=== PATIENT | female | born 1995 | race Caucasian/White ===

== ENCOUNTER 2020-06-13 01:57 | Emergency (ER) | payer OTHER ==
[2020-06-13 02:13] VITALS: TEMP 98.9; BMI 39.1
[2020-06-13] MEDS ORDERED: predniSONE 20 MG TABLET (UD) PO ONE (02:34)
[2020-06-13] MEDS ORDERED: valACYclovir HCL 500 MG TABLET (FP) PO ONE (02:36)
[2020-06-13] MEDS ORDERED: ARTIFICIAL TEARS (POLYVINYL ALCOHOL) OPTH DROPS OU PRN (02:37)
[2020-06-13] MEDS ORDERED: valACYclovir HCL 500 MG TABLET (FP) ONE (02:49)
[2020-06-13 03:32] VITALS: BP 129/82; PULSE 88
== END 2020-06-13 03:00 | disposition home or self-care (01) ==
LOC: JER 01:57
DX: O99.353 Diseases of the nervous system complicating pregnancy, third trimester (principal); Z3A.33 33 weeks gestation of pregnancy
CPT/HCPCS: 99283-25

== ENCOUNTER 2020-07-24 15:40 | Inpatient (IN) | payer OTHER ==
[2020-07-24] MEDS ORDERED: ELECTROLYTE-148 SOLN 500 ML IV SCH ×2 (18:00→19:00)
[2020-07-24] MEDS ORDERED: AMPICILLIN - 2 GM in SODIUM CHLORIDE 100 ML IVPB ONE (19:00)
[2020-07-24] MEDS ORDERED: DEXTROSE 5%-LACTATED RINGERS 1,000 ML IV SCH ×2 (19:00)
[2020-07-24] MEDS ORDERED: PROMETHAZINE HCL 25 MG/1 ML VIAL IVPB ONE (19:00)
[2020-07-24] MEDS ORDERED: BUTORPHANOL TARTRATE 1 MG/ML VIAL IVPB ONE (19:00)
[2020-07-24] MEDS ORDERED: AMPICILLIN SODIUM 2 GM VIAL ONE (19:38)
[2020-07-24 20:11] LABS: BASO % 0.4 % (0-2.0); EOS % 0.4 % (0-4.5); HEMATOCRIT 40.7 % (32.4-45.2); HEMOGLOBIN 13.5 GM/dL (10.7-15.3); LYMPH % 16.4 % (8-40); MCHC 33.2 g/dl (32.0-36.0); MEAN CELL VOLUME 93.2 fl (80-96); MEAN PLT VOLUME 8.8 fl (7.5-11.1); NEUT % 78.8 % (42.8-82.8); PLATELET COUNT 274 K/MM3 (134-434); RBC 4.37 M/mm3 (3.60-5.2); RDW 14.3 % (11.6-15.6); WHITE BLOOD COUNT 12.5 K/mm3 (4.0-10.0)
[2020-07-24 20:18] LABS: INR 0.9 (0.83-1.09); PROTHROMBIN TIME (PATIENT) 10.9 SEC (9.7-13.0)
[2020-07-24 20:21] LABS: ACTIVATED PTT 22.7 SECONDS (25.2-36.5)
[2020-07-24 20:27] LABS: BLOOD UREA NITROGEN 6.8 mg/dL (7-18); CALCIUM 9.3 mg/dL (8.5-10.1)
[2020-07-24 20:31] LABS: CREATININE 0.4 mg/dL (0.55-1.3)
[2020-07-24 20:52] VITALS: BMI 39.1
[2020-07-24 20:55] LABS: SYPHILIS W/ RPR CONF NON-REACTIVE (NONREACTIVE)
[2020-07-24] MEDS ORDERED: ELECTROLYTE-148 SOLN 1,000 ML IV SCH (21:00)
[2020-07-24] MEDS ORDERED: OXYTOCIN 30 UNITS in 0.9% NS 30 UNIT/500 ML INFUS.BAG IVPB ONE (21:47)
[2020-07-24] MEDS ORDERED: OXYTOCIN 30 UNITS in 0.9% NS 30 UNIT/500 ML INFUS.BAG IVPB SCH (23:00)
[2020-07-24] MEDS ORDERED: AMPICILLIN SODIUM 1 GM VIAL ONE (23:29)
[2020-07-24] MEDS: AMPICILLIN - 1 GM in SODIUM CHLORIDE 100 ML IVPB SCH (23:30)
[2020-07-25] MEDS ORDERED: PROMETHAZINE HCL 25 MG/1 ML VIAL ONE (00:09)
[2020-07-25] MEDS ORDERED: BUTORPHANOL TARTRATE 1 MG/ML VIAL ONE (00:09)
[2020-07-25] MEDS ORDERED: BUTORPHANOL TARTRATE 1 MG/ML VIAL IVPB ONE (00:30)
[2020-07-25] MEDS ORDERED: PCA PUMP NR ONE (01:38)
[2020-07-25] MEDS ORDERED: FENTANYL/BUPIVACAINE/NS/PF - PCEA - 50 ML DISP.SYRIN EP ONE (01:39)
[2020-07-25] MEDS ORDERED: BUPIVACAINE HCL/PF 0.25% (2.5MG/ML) 10 ML VIAL ONE (01:45)
[2020-07-25] MEDS ORDERED: NALOXONE HCL 0.4 MG/ML VIAL IVPUSH PRN (02:14)
[2020-07-25] MEDS ORDERED: FENTANYL/BUPIVACAINE/NS/PF - PCEA - 50 ML DISP.SYRIN EP SCH (02:15)
[2020-07-25] MEDS ORDERED: AMPICILLIN SODIUM 1 GM VIAL ONE (03:16)
[2020-07-25] MEDS: AMPICILLIN - 1 GM in SODIUM CHLORIDE 100 ML IVPB SCH (03:30)
[2020-07-25] MEDS ORDERED: GENTAMICIN SO4 80 MG/2 ML VIAL ONE (03:36)
[2020-07-25] MEDS ORDERED: GENTAMICIN INJECTION 160 MG in SODIUM CHLORIDE 100 ML IVPB ONE (03:52)
[2020-07-25] MEDS ORDERED: OXYTOCIN 20 UNITS in 0.9% NS 20 UNIT/1,000 ML INFUS.BAG IV ONE ×2 (06:13→08:12)
[2020-07-25] MEDS ORDERED: LIDOCAINE HCL 1% PRESERVATIVE FREE - 30ML VIAL ONE (06:14)
[2020-07-25] MEDS ORDERED: BENZOCAINE 20% 57 GM BOTTLE TP PRN (07:39)
[2020-07-25] MEDS ORDERED: ACETAMINOPHEN 325 MG TABLET (FP) PO PRN (07:39)
[2020-07-25] MEDS ORDERED: BENZOCAINE 28 GM HEMORRHOIDAL OINTMENT TP PRN (07:39)
[2020-07-25] MEDS ORDERED: BISACODYL 10 MG SUPP.RECT RC PRN (07:39)
[2020-07-25] MEDS ORDERED: METHYLERGONOVINE MALEATE 0.2 MG/1 ML AMP IM PRN (07:39)
[2020-07-25] MEDS ORDERED: IBUPROFEN 600 MG TABLET (FP) PO PRN (07:39)
[2020-07-25] MEDS ORDERED: WITCH HAZEL 50% (TUCKS) 40 PAD/JAR PAD TP PRN (07:39)
[2020-07-25] MEDS ORDERED: AMPICILLIN - 2 GM in SODIUM CHLORIDE 100 ML IVPB SCH (09:00)
[2020-07-25] MEDS ORDERED: GENTAMICIN 80 MG PREMIXED IVPB 80 MG/100 ML BAG IVPB SCH (10:00)
[2020-07-25] MEDS: GENTAMICIN 80 MG PREMIXED IVPB 80 MG/100 ML BAG IVPB SCH ×2 (12:18→19:48)
[2020-07-25] MEDS ORDERED: AMPICILLIN SODIUM 2 GM VIAL ONE ×2 (13:41→17:39)
[2020-07-25] MEDS ORDERED: SODIUM CHLORIDE 100 ML IVPB ONE ×2 (13:41→17:39)
[2020-07-25] MEDS: AMPICILLIN - 2 GM in SODIUM CHLORIDE 100 ML IVPB SCH ×2 (13:44→17:46)
[2020-07-26] MEDS ORDERED: SODIUM CHLORIDE 100 ML IVPB ONE ×2 (00:07→05:29)
[2020-07-26] MEDS ORDERED: AMPICILLIN SODIUM 2 GM VIAL ONE ×2 (00:07→05:29)
[2020-07-26] MEDS: AMPICILLIN - 2 GM in SODIUM CHLORIDE 100 ML IVPB SCH ×2 (00:11→05:32)
[2020-07-26 00:30] LABS: HIV INTERPRETATION NEGATIVE (NEGATIVE)
[2020-07-26 08:18] LABS: BASO % 0.3 % (0-2.0); EOS % 0.5 % (0-4.5); HEMATOCRIT 38.2 % (32.4-45.2); HEMOGLOBIN 12.3 GM/dL (10.7-15.3); LYMPH % 17.8 % (8-40); MCH 30.4 pg (25.7-33.7); MCHC 32.1 g/dl (32.0-36.0); MEAN CELL VOLUME 94.6 fl (80-96); MONO % 5.5 % (3.8-10.2); NEUT % 75.9 % (42.8-82.8); PLATELET COUNT 236 K/MM3 (134-434); RBC 4.04 M/mm3 (3.60-5.2); RDW 14.6 % (11.6-15.6); WHITE BLOOD COUNT 16.7 K/mm3 (4.0-10.0)
[2020-07-26 16:20] LABS: BASO % 0.4 % (0-2.0); EOS % 0.9 % (0-4.5); HEMATOCRIT 37.8 % (32.4-45.2); HEMOGLOBIN 12.5 GM/dL (10.7-15.3); LYMPH % 20.4 % (8-40); MCHC 33.2 g/dl (32.0-36.0); MEAN CELL VOLUME 93.5 fl (80-96); MEAN PLT VOLUME 8.5 fl (7.5-11.1); MONO % 5.7 % (3.8-10.2); NEUT % 72.6 % (42.8-82.8); PLATELET COUNT 247 10^3/uL (134-434); RBC 4.04 M/mm3 (3.60-5.2); RDW 14.5 % (11.6-15.6); WHITE BLOOD COUNT 14.1 K/mm3 (4.0-10.0)
[2020-07-26 16:25] LABS: INR 0.86 (0.83-1.09); PROTHROMBIN TIME (PATIENT) 10.4 SEC (9.7-13.0)
[2020-07-26 16:27] LABS: ACTIVATED PTT 23.9 SECONDS (25.2-36.5)
[2020-07-26 20:09] VITALS: PULSE 75
[2020-07-26] MEDS ORDERED: SENNOSIDES/DOCUSATE COMBO (SENNA PLUS) TABLET (UD) PO PRN (22:00)
[2020-07-27 08:37] VITALS: BP 122/78; TEMP 98.2
== END 2020-07-27 13:00 | disposition home or self-care (01) | DRG 560 ==
LOC: JDEL 15:40 → JLDR 18:42 → J3W 07-25 09:15
PROVIDERS: ADMIT Specialist; ATTEND Specialist
PROC: 10907ZC Drainage of Amniotic Fluid, Therapeutic from Products of Conception, Via Natural or Artificial Opening (ICD-10-PCS; principal; 2020-07-25)
PROC: 10E0XZZ Delivery of Products of Conception, External Approach (ICD-10-PCS; 2020-07-25)
PROC: 0W8NXZZ Division of Female Perineum, External Approach (ICD-10-PCS; 2020-07-25)
DX: O99.214 Obesity complicating childbirth (principal); E66.9 Obesity, unspecified; O99.350 Diseases of the nervous system complicating pregnancy, unspecified trimester; G51.0 Bell's palsy; Z37.0 Single live birth; Z3A.38 38 weeks gestation of pregnancy
CPT/HCPCS: 36415; 59409; 80048; 85025; 85610; 85730; 86780; 86850; 86900; 86901; 87389; C9803; U0003; U0005

== ENCOUNTER 2022-01-13 21:30 | Inpatient (IN) | payer OTHER ==
[2022-01-13] MEDS ORDERED: AMPICILLIN - 2 GM in SODIUM CHLORIDE 100 ML IVPB ONE (22:07)
[2022-01-13] MEDS ORDERED: ELECTROLYTE-148 SOLN 1,000 ML IV SCH (22:15)
[2022-01-13] MEDS ORDERED: OXYTOCIN 30 UNITS in 0.9% NS 30 UNIT/500 ML INFUS.BAG IVPB SCH (22:15)
[2022-01-13] MEDS ORDERED: AMPICILLIN SODIUM 2 GM VIAL ONE (22:42)
[2022-01-13] MEDS ORDERED: OXYTOCIN 30 UNITS in 0.9% NS 30 UNIT/500 ML INFUS.BAG IVPB ONE (22:42)
[2022-01-13] MEDS ORDERED: SODIUM CHLORIDE 100 ML IVPB ONE (22:42)
[2022-01-14 00:36] VITALS: BMI 38.4
[2022-01-14] MEDS ORDERED: PROMETHAZINE HCL 25 MG/1 ML VIAL ONE (01:59)
[2022-01-14] MEDS ORDERED: BUTORPHANOL TARTRATE 1 MG/ML VIAL ONE ×2 (01:59→02:01)
[2022-01-14] MEDS ORDERED: BUTORPHANOL TARTRATE 1 MG/ML VIAL IVPB SCH (02:00)
[2022-01-14] MEDS ORDERED: PROMETHAZINE HCL 25 MG/1 ML VIAL IVPB ONE (02:00)
[2022-01-14] MEDS ORDERED: LIDOCAINE HCL 1% PRESERVATIVE FREE - 30ML VIAL ONE (02:03)
[2022-01-14] MEDS ORDERED: OXYTOCIN 20 UNITS in 0.9% NS 20 UNIT/1,000 ML INFUS.BAG IV ONE (02:05)
[2022-01-14] MEDS ORDERED: AMPICILLIN - 1 GM in SODIUM CHLORIDE 100 ML IVPB SCH (02:15)
[2022-01-14] MEDS ORDERED: SODIUM CHLORIDE 100 ML IVPB ONE (02:45)
[2022-01-14] MEDS ORDERED: AMPICILLIN SODIUM 1 GM VIAL ONE (02:45)
[2022-01-14] MEDS ORDERED: BENZOCAINE 28 GM HEMORRHOIDAL OINTMENT TP PRN (03:47)
[2022-01-14] MEDS ORDERED: BISACODYL 10 MG SUPP.RECT RC PRN (03:47)
[2022-01-14] MEDS ORDERED: IBUPROFEN 600 MG TABLET (FP) PO PRN (03:47)
[2022-01-14] MEDS ORDERED: WITCH HAZEL 50% (TUCKS) 40 PAD/JAR PAD TP PRN (03:47)
[2022-01-14] MEDS ORDERED: BENZOCAINE 20% 57 GM BOTTLE TP PRN (03:47)
[2022-01-14] MEDS ORDERED: METHYLERGONOVINE MALEATE 0.2 MG/1 ML AMP IM PRN (03:47)
[2022-01-14] MEDS ORDERED: ACETAMINOPHEN 325 MG TABLET (FP) PO PRN (03:47)
[2022-01-14] MEDS ORDERED: oxyCODONE HCL 5 MG TABLET PO PRN (03:47)
[2022-01-14] MEDS ORDERED: OXYTOCIN 20 UNITS in 0.9% NS 20 UNIT/1,000 ML INFUS.BAG IV SCH (04:00)
[2022-01-15 10:41] LABS: BASO % 0.3 % (0-2.0); EOS % 0.8 % (0-4.5); HEMOGLOBIN 11.8 GM/dL (10.7-15.3); LYMPH % 25.5 % (8-40); MCH 30.1 pg (25.7-33.7); MCHC 32.9 g/dl (32.0-36.0); MEAN CELL VOLUME 91.4 fl (80-96); MEAN PLT VOLUME 9.2 fl (7.5-11.1); MONO % 5.1 % (3.8-10.2); NEUT % 68.3 % (42.8-82.8); PLATELET COUNT 250 10^3/uL (134-434); RBC 3.94 M/mm3 (3.60-5.2); RDW 13.7 % (11.6-15.6)
[2022-01-15 13:25] VITALS: BP 113/77; PULSE 95; RESP 17; TEMP 98.6
[2022-01-15] MEDS ORDERED: SENNOSIDES/DOCUSATE COMBO (SENNA PLUS) TABLET (UD) PO PRN (22:00)
== END 2022-01-15 14:00 | disposition home or self-care (01) | DRG 560 ==
LOC: JLDR 21:30 → J3W 01-14 05:13
PROVIDERS: ADMIT Specialist; ATTEND Specialist
PROC: 10E0XZZ Delivery of Products of Conception, External Approach (ICD-10-PCS; principal; 2022-01-14)
PROC: 0W8NXZZ Division of Female Perineum, External Approach (ICD-10-PCS; 2022-01-14)
DX: O99.824 Streptococcus B carrier state complicating childbirth (principal); O69.81X0 Labor and delivery complicated by cord around neck, without compression, not applicable or unspecified; Z3A.39 39 weeks gestation of pregnancy; Z37.0 Single live birth
CPT/HCPCS: 36415; 59025; 59409; 80048; 85025; 85610; 85730; 86780; 86850; 86900; 86901; C9803-CS; G0463-25; U0003; U0005

== ENCOUNTER 2023-07-11 14:25 | Inpatient (IN) | payer OTHER ==
[2023-07-11] MEDS ORDERED: AMPICILLIN SODIUM 2 GM VIAL ONE (14:53)
[2023-07-11] MEDS: AMPICILLIN - 2 GM in SODIUM CHLORIDE 100 ML IVPB ONE (15:30)
[2023-07-11] MEDS: ELECTROLYTE-148 SOLN 1,000 ML IV SCH (15:30)
[2023-07-11 15:40] LABS: BASO % 0.4 % (0-2.0); EOS % 2.4 % (0-4.5); HEMATOCRIT 39.4 % (32.4-45.2); HEMOGLOBIN 12.9 GM/dL (10.7-15.3); LYMPH % 21.2 % (8-40); MCH 29.2 pg (25.7-33.7); MCHC 32.6 g/dl (32.0-36.0); MEAN CELL VOLUME 89.4 fl (80-96); MEAN PLT VOLUME 8.9 fl (7.5-11.1); PLATELET COUNT 268 10^3/uL (134-434); RBC 4.41 M/mm3 (3.60-5.2); RDW 13.4 % (11.6-15.6); WHITE BLOOD COUNT 10.3 K/mm3 (4.0-10.0)
[2023-07-11 15:46] LABS: INR 0.86 (0.83-1.09); PROTHROMBIN TIME (PATIENT) 9.9 SEC (9.7-13.0)
[2023-07-11 15:48] LABS: ACTIVATED PTT 24.9 SECONDS (25.2-36.5)
[2023-07-11] MEDS ORDERED: OXYTOCIN 30 UNITS in 0.9% NS 30 UNIT/500 ML INFUS.BAG IVPB ONE (15:55)
[2023-07-11] MEDS: OXYTOCIN 30 UNITS in 0.9% NS 30 UNIT/500 ML INFUS.BAG IVPB SCH (16:00)
[2023-07-11 16:14] LABS: POTASSIUM 4.1 mmol/L (3.5-5.1)
[2023-07-11 16:15] VITALS: BMI 36.4
[2023-07-11 16:18] LABS: CALCIUM 8.9 mg/dL (8.5-10.1)
[2023-07-11 16:19] LABS: BLOOD UREA NITROGEN 9.1 mg/dL (7-18)
[2023-07-11 16:22] LABS: CREATININE 0.5 mg/dL (0.55-1.3)
[2023-07-11] MEDS ORDERED: OXYTOCIN 20 UNITS in 0.9% NS 20 UNIT/1,000 ML INFUS.BAG IV ONE (18:15)
[2023-07-11] MEDS ORDERED: AMPICILLIN SODIUM 1 GM VIAL ONE (18:31)
[2023-07-11] MEDS: AMPICILLIN - 1 GM in SODIUM CHLORIDE 100 ML IVPB SCH (18:35)
[2023-07-11] MEDS: OXYTOCIN 20 UNITS in 0.9% NS 20 UNIT/1,000 ML INFUS.BAG IV SCH (18:45)
[2023-07-12 11:05] LABS: HEMATOCRIT 37.1 % (32.4-45.2); HEMOGLOBIN 12.4 GM/dL (10.7-15.3); MCH 29.6 pg (25.7-33.7); MCHC 33.5 g/dl (32.0-36.0); MEAN CELL VOLUME 88.5 fl (80-96); MEAN PLT VOLUME 8.4 fl (7.5-11.1); PLATELET COUNT 245 10^3/uL (134-434); RBC 4.19 M/mm3 (3.60-5.2); RDW 13.7 % (11.6-15.6); WHITE BLOOD COUNT 12.8 K/mm3 (4.0-10.0)
[2023-07-12 22:08] VITALS: TEMP 98
[2023-07-13 09:23] VITALS: BP 106/73; PULSE 70; RESP 18
== END 2023-07-13 12:35 | disposition home or self-care (01) | DRG 560 ==
LOC: JLDR 14:25 → J3W 21:20
PROVIDERS: ADMIT Specialist; ATTEND Specialist
PROC: 10E0XZZ Delivery of Products of Conception, External Approach (ICD-10-PCS; principal; 2023-07-11)
DX: O70.0 First degree perineal laceration during delivery (principal); O24.420 Gestational diabetes mellitus in childbirth, diet controlled; O99.824 Streptococcus B carrier state complicating childbirth; Z3A.39 39 weeks gestation of pregnancy; Z37.0 Single live birth
CPT/HCPCS: 36415; 80048; 85025; 85027; 85610; 85730; 86780; 86803; 86850; 86900; 86901